=== PATIENT | male | born 1955 | race Caucasian/White ===

== ENCOUNTER 2016-03-12 06:53 | Emergency (ER) | payer OTHER ==
[2016-03-12 07:03] VITALS: TEMP 98.6
--- NOTE | 2016-03-12 07:25 | CPEKG ---
Heart Rate: 67 RR Interval: 896 P-R Interval: 144 QRSD Interval: 82 QT Interval: 392 QTC Interval: 414 P Knox: 45 QRS Knox: 16 T Wave Knox: 156 EKG Severity - ABNORMAL ECG - EKG Impression: SINUS RHYTHM EKG Impression: NONSPECIFIC T ABNORMALITIES, ANT-LAT LEADS EKG Impression: No previous for comparison Electronically Signed By: Corey White 12-Mar-2016 07:44:55
[2016-03-12] MEDS ORDERED: IPRATROPIUM/ALBUTEROL 3 ML DEYVIAL IH ONE (07:41)
--- NOTE | 2016-03-12 07:44 | EDPHY ---
H & P Stated Complaint: cough/not responsive to azithromycin Time Seen by Provider: 03/12/16 07:30 HPI/ROS: CHIEF COMPLAINT: Cough, shortness of breath with exertion HISTORY OF PRESENT ILLNESS: The patient is a 60-year-old man who comes to the emergency department complaining of a cough that is not improving. He has a history of severe seasonal allergies. He states that around this time every year he gets an infection that requires azithromycin. He saw his primary doctor Baldomero on Friday and was started on Z-Lowell. His symptoms however had not improved. He has had a low-grade fever at home. He also feels short of breath with exerting himself even walking more than a block or 2. He has not had any leg swelling. He denies chest pain. He has had sinus congestion and a significant cough that is nonproductive. No sore throat. No GI symptoms. No chest pain. REVIEW OF SYSTEMS: Constitutional: denies: chills, fever, recent illness, recent injury EENTM: denies: blurred vision, double vision, nose congestion Respiratory: See HPI Cardiac: denies: chest pain, irregular heart rate, lightheadedness, palpitations Gastrointestinal/Abdominal: denies: abdominal pain, diarrhea, nausea, vomiting, blood streaked stools Genitourinary: denies: dysuria, frequency, hematuria, pain Musculoskeletal: denies: joint pain, muscle pain Skin: denies: lesions, rash, jaundice, bruising Neurological: denies: headache, numbness, paresthesia, tingling, dizziness, weakness Hematologic/Lymphatic: denies: blood clots, easy bleeding, easy bruising Immunologic/allergic: denies: HIV/AIDS, transplant EXAM: GENERAL: Well-appearing, well-nourished and in no acute distress. HEAD: Atraumatic, normocephalic. EYES: Pupils equal round and reactive to light, extraocular movements intact, sclera anicteric, conjunctiva are normal. ENT: TMs normal, nares patent, oropharynx clear without exudates. Moist mucous membranes. NECK: Normal range of motion, supple without lymphadenopathy or JVD. LUNGS: Left middle lung field rhonchi HEART: Regular rate and rhythm without murmurs, rubs or gallops. ABDOMEN: Soft, nontender, normoactive bowel sounds. No guarding, no rebound. No masses appreciated. BACK: No CVA tenderness, no spinal tenderness, step-offs or deformities EXTREMITIES: Normal range of motion, no pitting or edema. No clubbing or cyanosis. NEUROLOGICAL: Cranial nerves II through XII grossly intact. Normal speech, normal gait. 5/5 strength, normal movement in all extremities, normal sensation PSYCH: Normal mood, normal affect. SKIN: Warm, dry, normal turgor, no visible rashes or lesions. Source: Patient Exam Limitations: No limitations - Personal History Current Tetanus/Diphtheria Vaccine: Yes - Medical/Surgical History Hx Asthma: No Hx Chronic Respiratory Disease: No Hx Diabetes: No Hx Cardiac Disease: No Hx Renal Disease: No Hx Cirrhosis: No Hx Alcoholism: No Hx HIV/AIDS: No Hx Splenectomy or Spleen Trauma: No Other PMH: hypertension, GERD, bowel resection, back surgery x2, neck fusion,. r shoulder surgery, several left ankle surgeries x6 with fusion - Family History Significant Family History: Hypertension - Social History Smoking Status: Former smoker Alcohol Use: Sober Drug Use: None Constitutional: Initial Vital Signs Temperature (C) 37 C 03/12/16 07:00 Heart Rate 75 03/12/16 07:00 Respiratory Rate 18 03/12/16 07:00 Blood Pressure 155/88 H 03/12/16 07:00 O2 Sat (%) 92 03/12/16 07:00 O2 Delivery Mode Room Air Allergies/Adverse Reactions: aspirin [From Percodan] Allergy (Verified 03/12/16 06:58) meperidine HCl [From Demerol] Allergy (Verified 03/12/16 06:58) oxycodone HCl [From Percodan] Allergy (Verified 03/12/16 06:58) oxycodone terephthalate [From Percodan] Allergy (Verified 03/12/16 06:58) Penicillins Allergy (Verified 03/12/16 06:58) Home Medications: Medication Instructions Recorded Ascorbic Acid [Vitamin C] 1,000 mg PO DAILY 06/27/15 Cholecalciferol Vit D3 [Vitamin D] 1,000 units PO DAILY 06/27/15 Cromolyn Sodium [Nasalcrom] 1 - 2 sprays EACHNARE DAILY 06/27/15 Fexofenadine HCl [Mildred Allergy] 180 mg PO DAILY 06/27/15 Lisinopril [Zestril] 10 mg PO DAILY 06/27/15 Pravastatin Sodium 20 mg PO DAILY 06/27/15 Psyllium Husk (with Sugar) 1 each PO DAILY 06/27/15 [Metamucil Packet] Albuterol [Proventil Inhaler] 1 - 2 puffs IH Q4H #1 mdi 03/12/16 levOFLOXACIN [levAQUIN] 750 mg PO DAILY #10 tab 03/12/16 Medical Decision Making - Diagnostics EKG Interpretation: An EKG obtained and was read and documented in trace view. Please see trace view for full reading and report. Sinus rhythm, nonspecific T-wave inversions anteriorly laterally, no previous for comparison Imaging: X-ray: chest x-ray was obtained. I viewed the images myself on the PACS system. My interpretation of the images is: Left lower lobe infiltrate. The radiologist interpretation is pending. ED Course/Re-evaluation: We discussed the x-ray results. They match the patient's symptoms. Will start him on Levaquin. He did have some improvement of symptoms with albuterol. He has albuterol at home that he can use. I will also refill his prescription. We discussed side effects of Levaquin. We discussed indications for returning. Additional verbal discharge instructions given. Differential Diagnosis: Partial list of the Differential diagnosis considered include but were not limited to; bronchitis, pneumonia, reactive airway disease and although unlikely based on the history and physical exam, I also considered PE, dissection, acute coronary disease. I discussed these differential diagnoses and the plan with the patient as well as the usual and expected course. The patient understands that the diagnosis is provisional and that in medicine we are not always correct and that further workup is often warranted. Usual and customary warnings were given. All of the patient's questions were answered. The patient was instructed to return to the emergency department should the symptoms at all worsen or return, otherwise to followup with the physician as we discussed. - Data Points Laboratory Results: 03/12/16 07:40 Influenza Typ A,B (DFA) NEGATIVE FOR FLU (NEGATIVE) Medications Given: Discontinued Medications Albuterol/Ipratropium (Duoneb) 3 ml IH EDNOW ONE Stop: 03/12/16 07:42 Last Admin: 03/12/16 07:48 Dose: 3 ml Levofloxacin (Levaquin) 750 mg PO EDNOW ONE PRN Reason: Protocol Stop: 03/12/16 09:01 Last Admin: 03/12/16 09:14 Dose: 750 mg Departure - Departure Disposition: Home, Routine, Self-Care Clinical Impression: Pneumonia Qualifiers: Pneumonia type: due to unspecified organism Laterality: left Lung location: lower lobe of lung Qualifier Code: (J18.1) Lobar pneumonia, unspecified organism Condition: Fair Instructions: Pneumonia (ED), Levofloxacin (By mouth) Referrals: Crystal Caputo MD [Primary Care Provider] - As per Instructions Prescriptions: Albuterol [Proventil Inhaler] 1 - 2 puffs IH Q4H #1 mdi levOFLOXACIN [levAQUIN] 750 mg PO DAILY #10 tab
[2016-03-12 09:16] VITALS: BP 138/83; PULSE 73; RESP 16; O2SAT 94
--- NOTE | 2016-03-12 10:55 | DX ---
Chest, Two Views at 0809 hours History: Dyspnea. Comparison: None. Findings: Cardiac silhouette is within normal range. Bilateral peribronchial thickening. No pneumonia , congestive heart failure, pleural effusion, or pneumothorax. Cervical fusion plate and screws noted Impression: 1. Bronchitis. 2. No definite pneumonia.
== END 2016-03-12 09:15 | disposition home or self-care (01) ==
DX: J18.1 Lobar pneumonia, unspecified organism (principal); I10 Essential (primary) hypertension; Z87.891 Personal history of nicotine dependence

== ENCOUNTER 2016-05-15 20:36 | Inpatient (IN) | payer OTHER ==
--- NOTE | 2016-05-15 20:47 | EDPHY ---
H & P Stated Complaint: L facial swelling, pain, due for extractions 4/6 on clinda HPI/ROS: HPI CHIEF COMPLAINT: Possible dental infection. HISTORY OF PRESENT ILLNESS: This patient very pleasant 60-year-old male, significant past medical history for hypertension, prediabetes, and poor dentition, multiple orthopedic surgeries, presents emergency room worsening left jaw line and facial swelling. He tells me this started early this morning. He was seen by his dentist today and started on clindamycin he has taken 1 dose of clindamycin prior to arrival to the emergency room. He was told by his dentist at the swelling went blow his jaw line needs to seek medical attention. He Nikolai as if his swelling of his left lower jaw line and face was getting more swollen. He has not had a fever. No trouble swallowing. No swelling underneath his tongue. The swelling and pain is located on the left lower jaw line. He has very poor dentition there. Tells me he is due to have dental extraction. Past Medical History: Hypertension, prediabetes, poor dentition, GERD, anxiety , multiple orthopedic surgeries Past Surgical History: Multiple orthopedic surgeries including back, cervical. Social History: Denies daily use drugs alcohol tobacco products Family History: Noncontributory ROS REVIEW OF SYSTEMS: A comprehensive 10 point review of systems is otherwise negative aside from elements mentioned in the history of present illness. Exam Constitutional triage nursing summary reviewed, vital signs reviewed, awake/ alert. Eyes normal conjunctivae and sclera, EOMI, PERRLA. HENT facial in oropharynx: patient has significant left jaw line swelling, is also swollen under the left submandibular region, on oral exam the uvula is midline there is no posterior pharynx inflammation or swelling, no sublingual swelling, no signs of Liam's, no lateral neck swelling. Patient has extremely poor dentition especially along the left lower jaw line. Multiple decayed over the teeth down to the gumline. normal inspection, atraumatic, moist mucus membranes, no epistaxis, neck supple/ no meningismus, no raccoon eyes. Respiratory clear to auscultation bilaterally, normal breath sounds, no respiratory distress, no wheezing. Cardiovascular rate normal, regular rhythm, no murmur, no edema, distal pulses normal. Gastrointestinal soft, non-tender, no rebound, no guarding, normal bowel sounds, no distension, no pulsatile mass. Genitourinary no CVA tenderness. Musculoskeletal no midline vertebral tenderness, full range of motion, no calf swelling, no tenderness of extremities, no meningismus, good pulses, neurovascularly intact. Skin pink, warm, & dry, no rash, skin atraumatic. Neurologic awake, alert and oriented x 3, AAOx3, moves all 4 extremities equally, motor intact, sensory intact, CN II-XII intact, normal cerebellar, normal vision, normal speech. Psychiatric normal mood/affect. Heme/Lymph/Immune no lymphadenopathy. Differential Diagnosis: Includes but is not limited to in a particular order, adult toy infection, facial abscess, facial cellulitis, bony abnormality, bony infection osteomyelitis Medical Decision Making: plan for this patient will have CT scan of his face with IV contrast to help delineate for abscess and daughter did not origin, blood work, inflammatory markers, he will be given IV clindamycin 900 mg, IV Decadron 10 mg, patient need to be admitted to the hospital for significant left facial swelling and infection. Question is is there an abscess or not. He appears well nontoxic. Re-evaluation: 2058: at this time this patient is maintaining his airway, no trouble swallowing, no trouble breathing. Noted left facial jaw line swelling. 2246: Re-evaluation at this time: Patient is resting comfortably no complaints. Specifically no trouble swallowing, no trouble breathing. Tells me there is no difference in pain or size since he has been here. He did receive 900 mg IV clindamycin, IV Decadron [address] scan results are pending at this time. CT scan of the face-vesta with IV contrast The results of the study are this shows significant swelling to the right face mandibular and submandibular region , no fluid collection or abscess that is discernible or drainable this is all odontoid in origin, there is multiple premolar molar dental decay and cavities The study was read by Dr. Dumont. I viewed the images myself on the PACS system. 2311: Patient understands he will be admitted to the hospital for IV antibiotics for his facial cellulitis most likely odontoid in origin I have ordered him 900 mg IV clindamycin. Blood cultures have been sent. Blood work has been reviewed. At this time I did re-evaluate he has no airway involvement no trouble swallowing. No signs of Liam's. He is nontoxic appearing. Blood work has been reviewed elevated CRP, elevated white blood cell count however patient is not hypotensive or febrile. I spoke with Dr. Ponce agrees to admit this patient for facial cellulitis. 2325: Spoke with Dr. Ponce Agrees to admit. Patient hemodynamically stable will be admitted Medical surge. Source: Patient - Personal History Current Tetanus/Diphtheria Vaccine: Unsure Current Tetanus Diphtheria and Acellular Pertussis (TDAP): Unsure - Medical/Surgical History Hx Asthma: No Hx Chronic Respiratory Disease: No Hx Diabetes: No Hx Cardiac Disease: No Hx Renal Disease: No Hx Cirrhosis: No Hx Alcoholism: No Hx HIV/AIDS: No Hx Splenectomy or Spleen Trauma: No Other PMH: hypertension, GERD, bowel resection, back surgery x2, neck fusion,. r shoulder surgery, several left ankle surgeries x6 with fusion - Social History Smoking Status: Former smoker Constitutional: Initial Vital Signs Temperature (C) 37.2 C 05/15/16 20:41 Heart Rate 82 05/15/16 20:41 Respiratory Rate 18 05/15/16 20:41 Blood Pressure 173/94 H 05/15/16 20:41 O2 Sat (%) 92 05/15/16 20:41 O2 Delivery Mode Room Air Allergies/Adverse Reactions: aspirin [From Percodan] Allergy (Verified 05/15/16 21:35) Other-Enter Comments meperidine HCl [From Demerol] Allergy (Verified 05/15/16 21:35) Vomiting oxycodone HCl [From Percodan] Allergy (Verified 05/15/16 21:35) Other-Enter Comments oxycodone terephthalate [From Percodan] Allergy (Verified 05/15/16 21:35) Other-Enter Comments Penicillins Allergy (Verified 05/15/16 21:35) Unknown Home Medications: Medication Instructions Recorded Ascorbic Acid [Vitamin C] 1,000 mg PO DAILY 06/27/15 Cholecalciferol Vit D3 [Vitamin D] 1,000 units PO DAILY 06/27/15 Cromolyn Sodium [Nasalcrom] 1 - 2 sprays EACHNARE DAILY 06/27/15 Fexofenadine HCl [Mildred Allergy] 180 mg PO DAILY 06/27/15 Pravastatin Sodium 20 mg PO DAILY 06/27/15 Psyllium Husk (with Sugar) 1 each PO DAILY 06/27/15 [Metamucil Packet] Albuterol [Proventil Inhaler] 1 - 2 puffs IH Q4H #1 mdi 03/12/16 Clindamycin 150 mg PO Q6H 05/15/16 Lisinopril [Zestril 30 mg] 30 mg PO BID 05/15/16 Naproxen Sodium [Aleve 220 MG (*)] 440 mg PO BID PRN 05/15/16 Sildenafil Citrate [Viagra] 100 mg PO DAILY PRN 05/15/16 Medical Decision Making - Data Points Laboratory Results: Laboratory Results 05/15/16 21:00 05/15/16 21:00 05/15/16 05/15/16 21:00 21:00 WBC 10.56 10^3/uL H 10^3/uL (3.80-9.50) RBC 4.99 10^6/uL 10^6/uL (4.40-6.38) Hgb 13.3 g/dL L g/dL (13.7-17.5) Hct 41.7 % % (40.0-51.0) MCV 83.6 fL fL (81.5-99.8) MCH 26.7 pg L pg (27.9-34.1) MCHC 31.9 g/dL L g/dL (32.4-36.7) RDW 16.9 % H % (11.5-15.2) Plt Count 252 10^3/uL 10^3/uL (150-400) MPV 10.7 fL fL (8.7-11.7) Neut % (Auto) 78.7 % H % (39.3-74.2) Lymph % (Auto) 11.2 % L % (15.0-45.0) Gilchrist % (Auto) 8.1 % % (4.5-13.0) Eos % (Auto) 1.0 % % (0.6-7.6) Baso % (Auto) 0.5 % % (0.3-1.7) Nucleat RBC Rel Count 0.0 % % (0.0-0.2) Absolute Neuts (auto) 8.31 10^3/uL H 10^3/uL (1.70-6.50) Absolute Lymphs (auto) 1.18 10^3/uL 10^3/uL (1.00-3.00) Absolute Monos (auto) 0.86 10^3/uL H 10^3/uL (0.30-0.80) Absolute Eos (auto) 0.11 10^3/uL 10^3/uL (0.03-0.40) Absolute Basos (auto) 0.05 10^3/uL 10^3/uL (0.02-0.10) Absolute Nucleated RBC 0.00 10^3/uL 10^3/uL (0-0.01) Immature Gran % 0.5 % % (0.0-1.1) Immature Gran # 0.05 10^3/uL 10^3/uL (0.00-0.10) ESR 14 MM/HR MM/HR (0-20) Sodium 141 mEq/L mEq/L (134-144) Potassium 3.7 mEq/L mEq/L (3.5-5.2) Chloride 104 mEq/L mEq/L (97-110) Carbon Dioxide 27 mEq/l mEq/l (22-31) Anion Gap 10 mEq/L mEq/L (8-16) BUN 12 mg/dL mg/dL (7-23) Creatinine 0.7 mg/dL mg/dL (0.7-1.3) Estimated GFR > 60 Glucose 155 mg/dL H mg/dL (70-100) Calcium 9.3 mg/dL mg/dL (8.5-10.4) C-Reactive Protein 29.4 mg/L H mg/L (<10.0) Medications Given: Discontinued Medications Dexamethasone (Decadron Injection) 10 mg IVP EDNOW ONE Stop: 05/15/16 20:54 Last Admin: 05/15/16 21:20 Dose: 10 mg Clindamycin Phosphate/Dextrose (Cleocin 900 Mg (Premix)) 50 mls @ 100 mls/hr IV ONCE ONE PRN Reason: Protocol Stop: 05/15/16 21:22 Last Admin: 05/15/16 21:26 Dose: 50 mls Sodium Chloride (Ns) 1,000 mls @ 0 mls/hr IV ONCE ONE PRN Reason: Wide Open Stop: 05/15/16 20:54 Last Admin: 05/15/16 21:15 Dose: 1,000 mls Lorazepam (Ativan Injection) 1 mg IVP EDNOW ONE Stop: 05/15/16 20:54 Last Admin: 05/15/16 21:58 Dose: 1 mg Departure - Departure Disposition: [facility] Inpatient Acute Clinical Impression: Facial cellulitis Condition: Fair Referrals: Crystal Caputo MD [Primary Care Provider] - As per Instructions
[2016-05-15] MEDS ORDERED: LORazepam 2 MG/ML INJ IVP ONE (20:53)
[2016-05-15] MEDS ORDERED: CLINDAMYCIN 900 MG/DEXTROSE 50 ML IV ONE (20:53)
[2016-05-15] MEDS ORDERED: DEXAMETHASONE 10 MG/ML VIAL IVP ONE (20:53)
[2016-05-15] MEDS ORDERED: NS 1,000 ML IV ONE (20:53)
[2016-05-15 21:15] LABS: % IMMATURE GRANULYOCYTES 0.5 % (0.0-1.1); ABSOLUTE IMMATURE GRANULOCYTES 0.05 10^3/uL (0.00-0.10); ADD DIFF? NO; ADD MORPH? NO; ADD SCAN? NO; ATYPICAL LYMPHOCYTE FLAG 0 (0-99); FRAGMENT RBC FLAG 0 (0-99); HEMATOCRIT 41.7 % (40.0-51.0); HEMOGLOBIN 13.3 g/dL (13.7-17.5); LEFT SHIFT FLG 0 (0-99); LIPEMIA HEMOLYSIS FLAG 80 (0-99); MEAN CELL HEMOGLOBIN 26.7 pg (27.9-34.1); MEAN CELL HEMOGLOBIN CONCENTR. 31.9 g/dL (32.4-36.7); MEAN CELL VOLUME 83.6 fL (81.5-99.8); MEAN PLATELET VOLUME 10.7 fL (8.7-11.7); PLATELET CLUMPS FLAG 20 (0-99); PLATELET COUNT 252 10^3/uL (150-400); RED BLOOD CELL COUNT 4.99 10^6/uL (4.40-6.38); RED CELL DISTRIBUTION WIDTH 16.9 % (11.5-15.2)
[2016-05-15] MEDS ORDERED: IOPAMIDOL (ISOVUE-300) 100 ML BTL IV ONE (21:30)
[2016-05-15 21:34] LABS: POTASSIUM 3.7 mEq/L (3.5-5.2)
[2016-05-15 21:37] LABS: ANION GAP 10 mEq/L (8-16); C-REACTIVE PROTEIN 29.4 mg/L (<10.0); CALCIUM 9.3 mg/dL (8.5-10.4); CARBON DIOXIDE 27 mEq/l (22-31); CHLORIDE 104 mEq/L (97-110); CREATININE 0.7 mg/dL (0.7-1.3); GLOMERULAR FILTRATION RATE > 60; GLUCOSE 155 mg/dL (70-100); SODIUM 141 mEq/L (134-144)
[2016-05-15 22:02] LABS: SEDIMENTATION RATE 14 MM/HR (0-20)
[2016-05-15] MEDS ORDERED: fentaNYL 100 MCG/2 ML INJ IVP ONE (22:50)
[2016-05-15] MEDS ORDERED: ONDANSETRON 4 MG/2 ML VIAL IVP ONE (22:50)
[2016-05-15] MEDS ORDERED: ONDANSETRON 4 MG/2 ML VIAL ONE (23:20)
[2016-05-16] MEDS ORDERED: ONDANSETRON DISINTEGRATING 4 MG TAB PO PRN (02:10)
[2016-05-16] MEDS ORDERED: ACETAMINOPHEN 325 MG TAB PO PRN (02:10)
[2016-05-16] MEDS ORDERED: ONDANSETRON 4 MG/2 ML VIAL IVP PRN (02:10)
[2016-05-16] MEDS ORDERED: NAPROXEN SODIUM 220 MG TAB PO PRN (02:12)
[2016-05-16] MEDS ORDERED: Sildenafil Citrate [Viagra] 100 MG PO PRN (02:12)
[2016-05-16] MEDS ORDERED: NS W/ 20 KCl/L 1,000 ML IV SCH (02:15)
--- NOTE | 2016-05-16 02:22 | PDGENHP ---
History and Physical - Chief Complaint Acute face pain - History of Present Illness PCP: Dr. Caputo Primary dentist: Dr. Viera HPI: 60-year-old male presenting with acute face pain located along the left mandible, extending medially with associated soft tissue swelling and visible erythema. Patient reports the onset of symptoms on the morning of presentation and duration has been persistently worsening thereafter. Did experience similar symptoms approximately 2 weeks ago but they were of lesser severity and they were alleviated by 8 days of oral clindamycin. The patient has been off of clindamycin for approximately 1 week. He reports that the pain is somewhat alleviated by naproxen. Has scheduled to have his left mandibular molars removed by Dr. Viera on May 30. He presented to [facility] on the day of this presentation and received 1 dose of 600 mg oral clindamycin but then became concerned when his symptoms did not gladys. History Information - Allergies/Home Medication List Allergies/Adverse Reactions: aspirin [From Percodan] Allergy (Verified 05/15/16 21:35) Other-Enter Comments meperidine HCl [From Demerol] Allergy (Verified 05/15/16 21:35) Vomiting oxycodone HCl [From Percodan] Allergy (Verified 05/15/16 21:35) Other-Enter Comments oxycodone terephthalate [From Percodan] Allergy (Verified 05/15/16 21:35) Other-Enter Comments Penicillins Allergy (Verified 05/15/16 21:35) Unknown Home Medications: Ascorbic Acid [Vitamin C] 1,000 mg PO DAILY 06/27/15 [Last Taken 05/15/16] Cholecalciferol Vit D3 [Vitamin D] 1,000 units PO DAILY 06/27/15 [Last Taken ] Cromolyn Sodium [Nasalcrom] 1 - 2 sprays EACHNARE DAILY 06/27/15 [Last Taken ] Fexofenadine HCl [Mildred Allergy] 180 mg PO DAILY 06/27/15 [Last Taken 05/15/16 ] Pravastatin Sodium 20 mg PO DAILY 06/27/15 [Last Taken 05/15/16] Psyllium Husk (with Sugar) [Metamucil Packet] 1 each PO DAILY 06/27/15 [Last Taken 05/15/16] Clindamycin 150 mg PO Q6H 05/15/16 [Last Taken 05/15/16 19:00 600 MG] Lisinopril [Zestril 30 mg] 30 mg PO BID 05/15/16 [Last Taken 05/15/16 BOTH DOSES ] Naproxen Sodium [Aleve 220 MG (*)] 440 mg PO BID PRN 05/15/16 [Last Taken ] Sildenafil Citrate [Viagra] 100 mg PO DAILY PRN 05/15/16 [Last Taken Unknown] I have personally reviewed and updated: family history, medical history, social history, surgical history - Past Medical History diabetes type 2 ( Hemoglobin A1c 6.6%), hypertension Additional medical history: Anxiety. Fibromyalgia. Dental decay - Surgical History Additional surgical history: Right shoulder. Bowel surgery. Back and cervical spine. Ankle surgery. Maxillary and right mandibular tooth extraction - Family History Additional family history: dental decay is prevalent in all of his family members - Social History Smoking Status: Former smoker Alcohol Use: Sober (quit 1981) Drug Use: None Additional social history: independent in ADLs Review of Systems ROS: 10pt was reviewed & negative except for what was stated in HPI & below EENMT: Reports: mouth swelling, other ( left mandibular molar pain) Skin: Reports: other ( erythema over left face) Physical Exam Temp Pulse Resp BP Pulse Ox 37.0 C 67 16 148/74 H 95 05/15/16 23:35 05/16/16 01:30 05/16/16 01:30 05/16/16 01:30 05/16/16 01:30 O2 (L/minute) 2 Constitutional: no apparent distress, appears nourished, not in pain, obese Eyes: PERRL, anicteric sclera, EOMI Ears, Nose, Mouth, Throat: other ( left lip swelling, left mandibular molar erosions, no particular soft tissue erythema in the left mouth and no open sores ) Cardiovascular: regular rate and rhythym, no murmur, rub, or gallop, edema ( trace bilateral lower extremity) Respiratory: no respiratory distress, no rales or rhonchi, clear to auscultation Gastrointestinal: normoactive bowel sounds, soft, non-tender abdomen, no palpable masses, other ( abdominal ventral hernia) Skin: other ( mild erythema along left mandible with soft tissue erythema under his chin, mild tenderness) Neurologic: AAOx3, No facial droop Psychiatric: interacting appropriately, not anxious, not encephalopathic, thought process linear Lymph, Heme, Immunologic: other ( anterior palpable cervical lymph nodes without any tenderness, submandibular lymphadenopathy left greater than right) Lab Data & Imaging Review 05/15/16 21:00 05/15/16 21:00 WBC 10.56 10^3/uL (3.80-9.50) H 05/15/16 21:00 RBC 4.99 10^6/uL (4.40-6.38) 05/15/16 21:00 Hgb 13.3 g/dL (13.7-17.5) L 05/15/16 21:00 Hct 41.7 % (40.0-51.0) 05/15/16 21:00 MCV 83.6 fL (81.5-99.8) 05/15/16 21:00 MCH 26.7 pg (27.9-34.1) L 05/15/16 21:00 MCHC 31.9 g/dL (32.4-36.7) L 05/15/16 21:00 RDW 16.9 % (11.5-15.2) H 05/15/16 21:00 Plt Count 252 10^3/uL (150-400) 05/15/16 21:00 MPV 10.7 fL (8.7-11.7) 05/15/16 21:00 Neut % (Auto) 78.7 % (39.3-74.2) H 05/15/16 21:00 Lymph % (Auto) 11.2 % (15.0-45.0) L 05/15/16 21:00 [place] % (Auto) 8.1 % (4.5-13.0) 05/15/16 21:00 Eos % (Auto) 1.0 % (0.6-7.6) 05/15/16 21:00 Baso % (Auto) 0.5 % (0.3-1.7) 05/15/16 21:00 Nucleat RBC Rel Count 0.0 % (0.0-0.2) 05/15/16 21:00 Absolute Neuts (auto) 8.31 10^3/uL (1.70-6.50) H 05/15/16 21:00 Absolute Lymphs (auto) 1.18 10^3/uL (1.00-3.00) 05/15/16 21:00 Absolute Monos (auto) 0.86 10^3/uL (0.30-0.80) H 05/15/16 21:00 Absolute Eos (auto) 0.11 10^3/uL (0.03-0.40) 05/15/16 21:00 Absolute Basos (auto) 0.05 10^3/uL (0.02-0.10) 05/15/16 21:00 Absolute Nucleated RBC 0.00 10^3/uL (0-0.01) 05/15/16 21:00 Immature Gran % 0.5 % (0.0-1.1) 05/15/16 21:00 Immature Gran # 0.05 10^3/uL (0.00-0.10) 05/15/16 21:00 ESR 14 MM/HR (0-20) 05/15/16 21:00 Sodium 141 mEq/L (134-144) 05/15/16 21:00 Potassium 3.7 mEq/L (3.5-5.2) 05/15/16 21:00 Chloride 104 mEq/L (97-110) 05/15/16 21:00 Carbon Dioxide 27 mEq/l (22-31) 05/15/16 21:00 Anion Gap 10 mEq/L (8-16) 05/15/16 21:00 BUN 12 mg/dL (7-23) 05/15/16 21:00 Creatinine 0.7 mg/dL (0.7-1.3) 05/15/16 21:00 Estimated GFR > 60 05/15/16 21:00 Glucose 155 mg/dL (70-100) H 05/15/16 21:00 Calcium 9.3 mg/dL (8.5-10.4) 05/15/16 21:00 C-Reactive Protein 29.4 mg/L (<10.0) H 05/15/16 21:00 Assessment & Plan Assessment: 60-year-old male presenting with facial cellulitis in the setting of left mandibular molar dental caries Plan: 1. Cellulitis. Patient's face CT demonstrates a dental cellulitis without any focal abscess, secondary to mandibular molar caries - has responded favorably to clindamycin in the past and then recurred when he was off of antibiotics - discussed with Dr. Bravo, he has reported that the patient received 900 mg of IV clindamycin in the emergency department, will continue with 600 mg IV Q 8 - if area significantly improved in a.m., recommend adjusting to oral clindamycin 300-450 mg q.6-8 hours for the next couple weeks until the patient is able to undergo dental extraction - patient is currently able to swallow, breathe, eat safely - no further inpatient OMFS evaluation is indicated as the patient has good outpatient dental follow-up 2. Hypertension. Continue patient's home medications Diet. Regular Prophylaxis. Moderate risk patient, Lovenox 40 Code status. Full Disposition. Anticipated discharge 05/16/2016, pending clinical improvement as outlined above.
[2016-05-16] MEDS: ALBUTEROL 60 PUFFS/8 GM MDI IH SCH ×4 (05:19→15:38)
[2016-05-16 06:07] LABS: % IMMATURE GRANULYOCYTES 0.7 % (0.0-1.1); ABSOLUTE IMMATURE GRANULOCYTES 0.08 10^3/uL (0.00-0.10); ADD DIFF? NO; ADD MORPH? NO; ADD SCAN? NO; ATYPICAL LYMPHOCYTE FLAG 0 (0-99); FRAGMENT RBC FLAG 0 (0-99); HEMATOCRIT 39.2 % (40.0-51.0); HEMOGLOBIN 12.5 g/dL (13.7-17.5); LEFT SHIFT FLG 0 (0-99); LIPEMIA HEMOLYSIS FLAG 80 (0-99); MEAN CELL HEMOGLOBIN 26.6 pg (27.9-34.1); MEAN CELL HEMOGLOBIN CONCENTR. 31.9 g/dL (32.4-36.7); MEAN CELL VOLUME 83.4 fL (81.5-99.8); MEAN PLATELET VOLUME 11.2 fL (8.7-11.7); PLATELET CLUMPS FLAG 0 (0-99); PLATELET COUNT 246 10^3/uL (150-400); RED CELL DISTRIBUTION WIDTH 16.8 % (11.5-15.2)
[2016-05-16] MEDS: CLINDAMYCIN 600 MG/DEXTROSE 50 ML IV SCH ×3 (06:09→21:42)
[2016-05-16 06:29] LABS: ANION GAP 14 mEq/L (8-16); CALCIUM 9.1 mg/dL (8.5-10.4); CARBON DIOXIDE 21 mEq/l (22-31); CHLORIDE 105 mEq/L (97-110); CREATININE 0.6 mg/dL (0.7-1.3); GLOMERULAR FILTRATION RATE > 60; GLUCOSE 233 mg/dL (70-100); POTASSIUM 4.4 mEq/L (3.5-5.2); SODIUM 140 mEq/L (134-144)
[2016-05-16] MEDS: LISINOPRIL 10 MG TAB PO SCH ×2 (09:48→21:42)
[2016-05-16] MEDS: ASCORBIC ACID 500 MG TAB PO SCH (09:48)
[2016-05-16] MEDS: CETIRIZINE 10 MG TAB PO SCH (09:48)
[2016-05-16] MEDS: CHOLECALCIFEROL VIT D3 1,000 UNITS TAB PO SCH (09:49)
[2016-05-16] MEDS: PRAVASTATIN SODIUM 20 MG TAB PO SCH (09:49)
[2016-05-16] MEDS: Cromolyn Sodium [Nasalcrom] EACHNARE SCH (09:49)
[2016-05-16] MEDS: ENOXAPARIN 40 MG/0.4 ML SYR SC SCH (09:50)
[2016-05-16] MEDS: PSYLLIUM METAMUCIL 1 PKT PO SCH (09:51)
--- NOTE | 2016-05-16 15:11 | HOSPPROG ---
Hospitalist Progress Note Assessment/Plan: 60-year-old male presenting with facial cellulitis in the setting of left mandibular molar dental caries. This is my first encounter with this pt. Chart reviewed. Plan: 1. Cellulitis. Patient's face CT demonstrates a dental cellulitis without any focal abscess, secondary to mandibular molar caries - has responded favorably to clindamycin in the past and then recurred when he was off of antibiotics - continue with 600 mg IV Q 8 - if area significantly improved in a.m., adjusting to oral clindamycin 300-450 mg q.6-8 hours for the next couple weeks until the patient is able to undergo dental extraction - patient is currently able to swallow, breathe, eat safely - no further inpatient OMFS evaluation is indicated as the patient has good outpatient dental follow-up 2. Hypertension. Continue patient's home medications Diet. Regular Prophylaxis. Moderate risk patient, Lovenox 40 Code status. Full Disposition. Change to inpatient. Needs further IV abx therapy and monitoring. Subjective: Feels better. Still has some pain. No other issues. Objective: Vital Signs Temp Pulse Resp BP Pulse Ox 36.8 C 99 18 175/93 H 93 05/16/16 11:28 05/16/16 11:28 05/16/16 11:28 05/16/16 11:28 05/16/16 11:28 Laboratory Results 05/16/16 04:50 05/16/16 04:50 05/15/16 05/16/16 05/17/16 05:59 05:59 05:59 Intake Total 1450 Output Total 500 Balance 950 - Physical Exam Constitutional: appears nourished, obese, uncomfortable Eyes: PERRL, anicteric sclera, EOMI Ears, Nose, Mouth, Throat: hearing normal, ears appear normal, other (cellulitis , swelling) Cardiovascular: regular rate and rhythym, No JVD, No edema Respiratory: no respiratory distress, no rales or rhonchi, clear to auscultation Gastrointestinal: No tenderness, No ascites, No guarding Skin: warm, normal color, erythema Musculoskeletal: full muscle strength, normal joint ROM, no joint effusions Neurologic: AAOx3 Psychiatric: interacting appropriately, not anxious, not encephalopathic ICD10 Worksheet Patient Problems: Problems Problem Status Onset Facial cellulitis Acute
[2016-05-16] MEDS ORDERED: ALBUTEROL 60 PUFFS/8 GM MDI IH PRN (15:29)
[2016-05-17] MEDS: CLINDAMYCIN 600 MG/DEXTROSE 50 ML IV SCH (05:24)
[2016-05-17 07:45] VITALS: BP 149/75; PULSE 73; RESP 16; TEMP 97.5; O2SAT 92
[2016-05-17] MEDS: LISINOPRIL 10 MG TAB PO SCH (10:23)
[2016-05-17] MEDS: CETIRIZINE 10 MG TAB PO SCH (10:23)
[2016-05-17] MEDS: PSYLLIUM METAMUCIL 1 PKT PO SCH (10:24)
[2016-05-17] MEDS: CHOLECALCIFEROL VIT D3 1,000 UNITS TAB PO SCH (10:24)
[2016-05-17] MEDS: ASCORBIC ACID 500 MG TAB PO SCH (10:24)
[2016-05-17] MEDS: PRAVASTATIN SODIUM 20 MG TAB PO SCH (10:24)
[2016-05-17] MEDS: ENOXAPARIN 40 MG/0.4 ML SYR SC SCH (10:26)
[2016-05-17] MEDS: Cromolyn Sodium [Nasalcrom] EACHNARE SCH (10:26)
--- NOTE | 2016-05-17 11:52 | GDS ---
[f rep st] DISCHARGE SUMMARY DISCHARGE DIAGNOSES: Facial cellulitis with mandibular molar caries without focal abscess. STUDIES AND PROCEDURES DONE: CT of the face. PHYSICAL EXAM: GENERAL: The patient is alert. VITAL SIGNS: Afebrile at 36.4, pulse is 73, respir atory rate 16, blood pressure is 149/75, he is saturating 92% on room air. I have seen and evaluate d the patient on the day of discharge. HOSPITAL COURSE: The patient is a 60-year-old male who presented to the hospital with complaints of facial pain and swelling. He was evaluated and diagnosed with facial cellulitis with mandibular mo lar caries without focal abscess. During this hospitalization, he was treated with IV clindamycin. His condition is moderately improved; however, it has been identified that the patient needs to hav e his teeth removed for this infection to resolve. I have discussed the patient's care with Dr. Anuel Lo who is willing to see the patient this afternoon in consultation in his office. Mr. Nakul campbell will be discharged independently to follow up with Dr. Lo today at 2 p.m. with the plan to h ave his teeth extracted. The patient is in agreement with this plan. He will follow up again in e outpatient setting. He also suffers from hypertension. He has been instructed to follow up with his primary care physician, Dr. Crystal Caputo to further evaluate his medication needs given his hy pertension. I have not treated it during this hospitalization as he is under distress and discomfor t secondary to his acute infectious process. There are no pending studies. DISCHARGE MEDICATIONS: Please refer to EMR form. I have not provided the patient with any prescrip tions at the time of disposition. He does already have a prescription for oral clindamycin but will defer to Dr. Lo for further antibiotic recommendations. I spent greater than 35 minutes in the care, coordination, and management of the patient's discharge . /[id number]/MODL
== END 2016-05-17 12:55 | disposition home or self-care (01) | DRG 603 ==
LOC: INTOOBSV 23:26 → F3E 05-16 02:40 → OBSVTOIN 05-16 12:21
PROVIDERS: ADMIT Internal Medicine; ATTEND Hospitalist
DX: L03.211 Cellulitis of face (principal); K02.9 Dental caries, unspecified; I10 Essential (primary) hypertension; R73.03 Prediabetes
CPT/HCPCS: 96365; J1650; J2060; J2405; J3010; Q9967

== ENCOUNTER → 2017-01-08 | Day surgery (SDC) | payer OTHER ==
[~2017-01-08] MED LIST: ACETAMINOPHEN 325 MG TAB PO ONE; DEXAMETHASONE 4 MG/ML VIAL IVP ONE; FAMOTIDINE 20 MG TAB PO ONE; LR 1,000 ML IV ONE; ROPIVACAINE 0.2% 80 MG, EPINEPHrine 0.2 MG in BAG 0 ML IU ONE; ROPIVACAINE 0.2% 80 MG, EPINEPHrine 0.2 MG, KETOROLAC TROMETHAMINE 30 MG in BAG 0 ML IU ONE; TRANEXAMIC ACID 3,000 MG in NS 50 ML IRR ONE; TRANEXAMIC ACID 3,000 MG/50 ML BAG IRR ONE; VANCOMYCIN 1 GM/NS 250 ML BAG IV ONE; VANCOMYCIN 1.75 GM in D5W 500 ML IV ONE
[2017-01-08 06:28] VITALS: BP 146/91; PULSE 72; RESP 17; TEMP 98.6
--- NOTE | 2017-01-08 07:26 | PDHPUP ---
History & Physical Update H&P update statement: This history and physical update is based on an assessment of the patient which was completed after admission or registration (within 24 hours), but prior to the surgery/procedure. H&P update: H&P reviewed & patient examined, no change in patient's condition since H&P completed
== END | disposition home or self-care (01) ==
LOC: F3N 05:44 → FSGY 05:44 → UNDOADMIN 05:44 → EDSTATUS 08:15
PROVIDERS: ATTEND Orthopaedic Surgery
DX: M16.11 Unilateral primary osteoarthritis, right hip (principal); Z53.09 Procedure and treatment not carried out because of other contraindication; L73.1 Pseudofolliculitis barbae
CPT/HCPCS: J0171; J1100; J1885; J2795; J3370

== ENCOUNTER 2017-02-07 10:36 | Inpatient (IN) | payer OTHER ==
[~2017-02-07 10:36] MED LIST changes: -ACETAMINOPHEN 325 MG TAB PO ONE; -DEXAMETHASONE 4 MG/ML VIAL IVP ONE; -FAMOTIDINE 20 MG TAB PO ONE; -LR 1,000 ML IV ONE; -ROPIVACAINE 0.2% 80 MG, EPINEPHrine 0.2 MG in BAG 0 ML IU ONE; -ROPIVACAINE 0.2% 80 MG, EPINEPHrine 0.2 MG, KETOROLAC TROMETHAMINE 30 MG in BAG 0 ML IU ONE; +ROPIVACAINE 0.2% 80 MG, EPINEPHrine 0.2 MG, KETOROLAC TROMETHAMINE 30 MG in SYRINGE 0 ML IU ONE; -VANCOMYCIN 1 GM/NS 250 ML BAG IV ONE; -VANCOMYCIN 1.75 GM in D5W 500 ML IV ONE
[2017-02-07] MEDS ORDERED: FAMOTIDINE 20 MG TAB PO ONE (12:44)
[2017-02-07] MEDS ORDERED: DEXAMETHASONE 4 MG/ML VIAL IVP ONE (12:44)
[2017-02-07] MEDS ORDERED: ACETAMINOPHEN 325 MG TAB PO ONE (12:44)
[2017-02-07] MEDS ORDERED: VANCOMYCIN PHARMACY TO DOSE MISC ONE (12:44)
[2017-02-07] MEDS ORDERED: LR 1,000 ML IV ONE (12:45)
--- NOTE | 2017-02-07 12:58 | PDANEPAE ---
ANE History of Present Illness 61 year old male w/ PMHx of HTN, obesity & OA presents for Right Hip Arthroplasty (anterior approach). ANE Past Medical History - Cardiovascular History Hx Hypertension: Yes Hx Arrhythmias: No Hx Chest Pain: No Hx Coronary Artery / Peripheral Vascular Disease: No Hx CHF / Valvular Disease: No Hx Palpitations: No Cardiovascular History Comment: hyperlipidemia, yulia filter - Pulmonary History Hx COPD: No Hx Asthma/Reactive Airway Disease: No Hx Recent Upper Respiratory Infection: No Hx Oxygen in Use at Home: No Hx Sleep Apnea: No Sleep Apnea Screening Result - Last Documented: Positive Pulmonary History Comment: drea triggers, no dx - Neurologic History Hx Cerebrovascular Accident: No Hx Seizures: No Hx Dementia: No - Endocrine History Hx Diabetes: No Obesity: yes Endocrine History Comment: "pre-diabetic" controlling with diet - Renal History Hx Renal Disorders: Yes Renal History Comment: bph - Liver History Hx Hepatic Disorders: No - Neurological & Psychiatric Hx Hx Neurological and Psychiatric Disorders: No - Cancer History Hx Cancer: Yes Cancer History Comment: melanoma removed - Congenital Disorder History Hx Congenital Disorders: No - GI History GERD: mild Hx Gastrointestinal Disorders: Yes Gastrointestinal History Comment: gerd,bowel resection 1994. IBS - Other Health History Other Health History: wears glasses. has upper denture - Chronic Pain History Chronic Pain: Yes (FIBROMYALGIA,LEFT FOOT,) - Surgical History Prior Surgeries: knee surgeries. 1994 left ankle fusion. back surgery. neck fusion 1999. spinal decompression 2010. hardware removed from left ankle ANE Review of Systems Review of Systems: - Exercise capacity Exercise capacity: >=4 METS METS (RN): 4 METS ANE Patient History - Allergies Allergies/Adverse Reactions: oxycodone [From Percocet] Allergy (Severe, Verified 01/15/17 10:25) Other-Enter Comments ceftriaxone [From Rocephin] Allergy (Mild, Verified 01/15/17 10:25) Vomiting latex Allergy (Verified 12/23/16 15:38) Rash meperidine HCl [From Demerol] Allergy (Verified 12/23/16 15:29) Vomiting oxycodone HCl [From Percodan] Allergy (Verified 12/23/16 15:29) Other-Enter Comments oxycodone terephthalate [From Percodan] Allergy (Verified 12/23/16 15:29) Other-Enter Comments Penicillins Allergy (Verified 12/23/16 15:29) Unknown - Home Medications Home medications: home medication list seen and reviewed Home Medications: RX: Ascorbic Acid [Vitamin C] 1,000 mg PO DAILY 06/27/15 [Last Taken 01/01/17] RX: Cholecalciferol Vit D3 [Vitamin D3 (*)] 1,000 units PO DAILY 06/27/15 [Last Taken 01/01/17] RX: Fexofenadine HCl [Mildred Allergy] 180 mg PO DAILY 06/27/15 [Last Taken 06:00] RX: Psyllium Husk (with Sugar) [Metamucil Packet] 1 each PO DAILY 06/27/15 [ Last Taken 01/07/17] RX: Lisinopril [Zestril 30 mg] 30 mg PO BID 05/15/16 [Last Taken 01/07/17 06:00] RX: Naproxen Sodium [Aleve 220 MG (*)] 440 mg PO BID PRN 05/15/16 [Last Taken ] RX: Sildenafil Citrate [Viagra] 100 mg PO DAILY PRN 05/15/16 [Last Taken 21:00] Atorvastatin Calcium [Lipitor 40 mg (*)] 40 mg PO HS 12/23/16 [Last Taken 21:00] amLODIPine BESYLATE [Norvasc 10 mg (*)] 10 mg PO HS 12/23/16 [Last Taken 21:00] - NPO status NPO Status: no food or drink >8 hours - Anes Hx Anes Hx: no prior problems - Smoking Hx Smoking Status: Former smoker - Alcohol Use Alcohol Use: Rarely - Family Anes Hx Family Anes Hx: neg - N/A Family Hx Anesthesia Complications: none ANE Labs/Vital Signs - Vital Signs Vital Signs: reviewed preoperatively; see RN documention for details Height: 182.88 cm Weight: 117.934 kg ANE Physical Exam - Airway Neck exam: FROM Mallampati Score: Class 3 Mouth exam: dentures, small mouth opening - Pulmonary Pulmonary: no respiratory distress - Cardiovascular Cardiovascular: regular rate and rhythym - ASA Status ASA Status: III ANE Anesthesia Plan Anesthesia Plan: general endotracheal anesthesia, MAC, spinal Total IV Anesthesia: No
[2017-02-07] MEDS ORDERED: LIDOCAINE 1% 2 ML INJ ID PRN (13:24)
[2017-02-07] MEDS ORDERED: VANCOMYCIN 1.5 GM in D5W 250 ML IV ONE (13:30)
[2017-02-07] MEDS ORDERED: MIDAZOLAM 2 MG/2 ML VIAL IVP ONE (14:00)
[2017-02-07] MEDS ORDERED: MIDAZOLAM 2 MG/2 ML VIAL ONE (14:04)
[2017-02-07] MEDS ORDERED: PROPOFOL/EMULSION 500 MG/50 ML BOTTLE IV ONE ×2 (14:05→14:50)
[2017-02-07] MEDS ORDERED: fentaNYL 100 MCG/2 ML INJ ONE ×2 (14:34→16:07)
[2017-02-07] MEDS ORDERED: diphenhydrAMINE 25 MG CAP PO PRN ×2 (14:41→14:43)
[2017-02-07] MEDS ORDERED: TEMAZEPAM 15 MG CAP PO PRN (14:41)
[2017-02-07] MEDS ORDERED: ONDANSETRON 4 MG/2 ML VIAL IVP PRN ×3 (14:41→15:17)
[2017-02-07] MEDS ORDERED: MAGNESIUM HYDROXIDE 30 ML UDCUP PO PRN (14:41)
[2017-02-07] MEDS ORDERED: PROMETHAZINE HCL 25 MG/ML INJ IVP PRN ×2 (14:41→14:43)
[2017-02-07] MEDS ORDERED: BISACODYL 10 MG SUPP PR PRN (14:41)
[2017-02-07] MEDS ORDERED: ONDANSETRON DISINTEGRATING 4 MG TAB PO PRN ×2 (14:41→14:43)
[2017-02-07] MEDS ORDERED: LACTULOSE 20 GM/30 ML UDCUP PO PRN ×2 (14:41→14:43)
[2017-02-07] MEDS ORDERED: PROMETHAZINE HCL 25 MG SUPPR PR PRN ×2 (14:41→14:43)
[2017-02-07] MEDS ORDERED: METOCLOPRAMIDE 10 MG/2 ML VIAL IVP PRN ×2 (14:41→14:43)
[2017-02-07] MEDS ORDERED: POLYETHYLENE GLYCOL 3350 17 GM PKT PO PRN ×2 (14:41→14:43)
[2017-02-07] MEDS ORDERED: oxyCODONE IR 5 MG TAB PO PRN (14:43)
[2017-02-07] MEDS ORDERED: DIPHENOXYLATE/ATROPINE LOMOTIL 1 TAB PO PRN (14:43)
[2017-02-07] MEDS ORDERED: LR 1,000 ML IV SCH ×2 (15:00)
[2017-02-07] MEDS ORDERED: LIDOCAINE 2% 5 ML SDV ONE (15:06)
[2017-02-07] MEDS ORDERED: ROCURONIUM 50 MG/5 ML VIAL ONE (15:06)
[2017-02-07] MEDS ORDERED: PHENYLEPHRINE HCL 100 MCG/ML SYR ONE (15:07)
[2017-02-07] MEDS ORDERED: SUCCINYLCHOLINE CHLORIDE*ANESTHESIA ONLY*200 MG/10 ML SYR IVP ONE (15:07)
[2017-02-07] MEDS ORDERED: DEXAMETHASONE 4 MG/ML VIAL ONE (15:09)
[2017-02-07] MEDS ORDERED: LABETALOL HCL 5 MG/ML 20 ML MDV IVP PRN (15:17)
[2017-02-07] MEDS ORDERED: LR 500 ML IV PRN (15:17)
[2017-02-07] MEDS ORDERED: NALOXONE HCL 0.4 MG/ML INJ IVP PRN ×2 (15:17→16:43)
[2017-02-07] MEDS ORDERED: WARFARIN SODIUM 5 MG TAB PO SCH (16:00)
--- NOTE | 2017-02-07 16:01 | POSTOPPROG ---
Post Op Note Date of Operation: 02/07/17 Surgeon: Subhash Garvin Supervisor [employer]ation: Eneida Garvin PAc Anesthesiologist: Evens Anesthesia: GET(General Endotracheal) Pre-op Diagnosis: R hip DJD Post-op Diagnosis: same Indication: pain Procedure: R LUCITA Findings: DJD hip Inf/Abcess present in the surg proc area at time of surgery?: No EBL: 100-500
[2017-02-07] MEDS: fentaNYL 100 MCG/2 ML INJ IVP PRN ×2 (16:12→16:20)
--- NOTE | 2017-02-07 16:20 | POSTANESTH ---
Post Anesthetic Evaluation Cardiovascular Status: Normal, Stable, Similar to Pre-Op Cond Respiratory Status: Normal, Stable, Similar to Pre-op Cond. Level of Consciousness/Mental Status: Can Participate in Eval, Alert and Oriented Pain Control: Adequate, Prn Tx Ordered Nausea/Vomiting Control: Adequate, Prn Tx Ordered Complications Possibly Related to Anesthesia: None Noted
[2017-02-07] MEDS ORDERED: HYDROmorphONE/DILAUDID 1 MG/ML INJ ONE (16:43)
[2017-02-07] MEDS: HYDROmorphONE/DILAUDID 1 MG/ML INJ IVP PRN ×3 (16:59→17:37)
[2017-02-07] MEDS ORDERED: HYDROCODONE/APAP 5/325 TAB ONE (17:27)
[2017-02-07] MEDS ORDERED: HYDROCODONE/APAP 5/325 TAB PO PRN (17:27)
[2017-02-07] MEDS: ACETAMINOPHEN 325 MG TAB PO SCH (20:58)
[2017-02-07] MEDS: FAMOTIDINE 20 MG TAB PO SCH (21:00)
[2017-02-07] MEDS: SENNOSIDES/DOCUSATE SODIUM TAB PO SCH (21:00)
[2017-02-07] MEDS ORDERED: ATORVASTATIN CALCIUM 40 MG TAB PO SCH (21:00)
[2017-02-07] MEDS: LISINOPRIL 20 MG TAB PO SCH (21:03)
[2017-02-08] MEDS: ACETAMINOPHEN 325 MG TAB PO SCH ×3 (00:41→10:40)
[2017-02-08] MEDS: WARFARIN SODIUM 5 MG TAB PO SCH ×2 (00:56→11:17)
[2017-02-08] MEDS ORDERED: VANCOMYCIN 1.5 GM in D5W 250 ML IV ONE (02:00)
[2017-02-08] MEDS: CYCLOBENZAPRINE 10 MG TAB PO PRN ×2 (02:22→10:40)
[2017-02-08 04:50] LABS: HEMATOCRIT 36.4 % (40.0-51.0); HEMOGLOBIN 12.1 g/dL (13.7-17.5)
[2017-02-08 04:58] LABS: INR 1.11 (0.83-1.16); PROTIME(PATIENT) 14.5 SEC (12.0-15.0)
[2017-02-08 05:07] LABS: ANION GAP 13 mEq/L (8-16); CALCIUM 8.7 mg/dL (8.5-10.4); CARBON DIOXIDE 24 mEq/l (22-31); CHLORIDE 103 mEq/L (97-110); CREATININE 0.9 mg/dL (0.7-1.3); GLOMERULAR FILTRATION RATE > 60; GLUCOSE 275 mg/dL (70-100); POTASSIUM 4.2 mEq/L (3.5-5.2); SODIUM 140 mEq/L (134-144)
--- NOTE | 2017-02-08 07:01 | GOP ---
[f rep st] OPERATIVE REPORT DATE OF OPERATION: 02/07/2017 SURGEON: Margret Garvin MD NEON PUMPER: ALBA Manzanares. PREOPERATIVE DIAGNOSIS: Right hip osteoarthritis. POSTOPERATIVE DIAGNOSIS: Right hip osteoarthritis. PROCEDURE PERFORMED: Total hip arthroplasty with x-ray. FINDINGS: INDICATIONS: The patient has progressively worsening arthritis of the hip which has failed medical management. The patient understands the treatment options including continued non-operative care and has selected surgical intervention. The patient has decided to undergo total hip arthroplasty via the direct anterior approach, understanding the risks of the procedure including , but not limited to, neurovascular injury, infection, persistent pain, component wear and loosening, deep venous thrombosis, pulmonary embolism, limb length inequality, hip instability (including dislocation), and intra-operative fractures. DESCRIPTION OF PROCEDURE: After proper identification of the patient including verification and marking the surgical site, the patient was brought to the operating room and placed in the supine position. All bony prominences were well padded. Anesthesia was induced without complication and intravenous prophylactic antibiotics were administered prior to skin incision. The operative leg was placed in the Trumpf Arch table extension and the well leg in a Yellofin leg alcantara. The patient was prepped and draped in the usual sterile fashion. The C-arm was draped for intra-operative fluoroscopy to check acetabular position, femoral component position including leg length and femoral offset. Attention was then drawn to surgical exposure of the hip. An incision was made with a #10 Bard Nura blade starting 3 cm lateral and 3 cm distal to the anterior superior iliac spine measuring 8-10 cm and coursing distally toward the greater trochanter. The skin and subcutaneous tissues were divided sharply down to the fascia juani. The fascia juani was incised in line with the skin incision exposing the underlying tensor fascia juani muscle. The muscle was bluntly elevated from the fascia and the first extracapsular Cobra retractor was placed laterally at the junction of the superior femoral neck and greater trochanter. The lateral femoral circumflex vessels were identified, cauterized , and divided with the Aquamantys bipolar cautery. The deep investing fascia of the TFL was divided to allow proper mobilization of the muscle preventing damage during the retraction. The reflected head of the rectus femoris muscle was elevated off the anterior hip capsule and a medial Cobra retractor was placed just proximal to the lesser trochanter. The anterior capsulotomy was made sharply from the superolateral acetabulum to the saddle junction of the superior femoral neck and greater trochanter, then coursing inferomedial towards the lesser trochanter. The retractors were then placed in the intracapsular position for femoral neck osteotomy. Corresponding to pre-operative templating, the osteotomy was made with the oscillating saw carefully protecting the greater trochanter and soft tissues. The femoral head was removed from the acetabulum with a corkscrew and confirmed to be severely arthritic with exposed bone, deformity and osteophytes. Similar findings were confirmed in the acetabulum. The Arch table extension was then placed in 40 degrees external rotation. Attention was then drawn to the acetabular preparation. After placement of the anterior and posterior Cobra retractors outside the labrum and intracapsular, the circumferential labrum was removed sharply. The foveal contents were then removed and hemostasis obtained with cautery. The first reamer selected was sized using the removed femoral head. Reaming began with medialization and then commenced in 2 mm increments at 45 degrees of abduction and 15 degrees of anteversion using fluoroscopic navigation. Reaming ceased 1 mm less than the definitive acetabular component and corresponded to the pre-operative templating. The final acetabular component was inserted using fluoroscopy to achieve proper orientation yielding excellent purchase and stability in the acetabulum. The final acetabular liner was then placed and its seating confirmed. Attention was then turned to the femur. The Arch table extension was placed in extension and adduction, delivering the osteotomized femoral neck into the wound. A 2-pronged femoral elevator was placed at the calcar and another at the tip of the greater trochanter. The posterolateral capsule was released with cautery allowing mobilization of the femur lateral and anterior for preparation. The external rotators were visualized and preserved. A curette and rongeur were used to open the starting point for broaching. Serial broaching started with the #0 broach and ended with the broach that exhibited excellent fit in the proximal femur. A change in pitch during mallet strikes was accompanied by the inability to advance the broach any further. The trial reduction was performed and fluoroscopic navigation was utilized to check limb length. Adjustments were made to equalize limb length accordingly. After the final trials were accepted they were removed and the wound was copiously lavaged. The femoral component was seated to the same depth as the final broach and the femoral head was impacted onto the clean trunnion. The hip was then reduced for the final time and once more fluoroscopy was used to check that limb length equality was achieved. The wound was irrigated and closed in layers, the fascia juani with 2-0 Quill, the subcutaneous tissue with 2-0 Quill, and the skin with Dermabond. Sterile dressings were applied. Final sharps and sponge counts were accurate. The patient was then transferred to a hospital bed and brought to the recovery room in stable condition. IMPLANTS: Accolade II size 5 at 127. Acetabular component a 56 mm Tritanium. The liner is a Trident X3, 36 mm. The head is a Biolox Delta 36 mm, -5. /[id number]/MODL MTDD
[2017-02-08 07:17] VITALS: BP 129/71; PULSE 88; RESP 17; TEMP 97.9; O2SAT 95
[2017-02-08] MEDS: SENNOSIDES/DOCUSATE SODIUM TAB PO SCH (08:57)
[2017-02-08] MEDS: FAMOTIDINE 20 MG TAB PO SCH (08:57)
[2017-02-08] MEDS ORDERED: ENOXAPARIN 40 MG/0.4 ML SYR SC SCH (09:00)
[2017-02-08] MEDS: LISINOPRIL 20 MG TAB PO SCH (09:08)
--- NOTE | 2017-02-08 09:10 | SOAPPROG ---
SOAP Progress Note Assessment/Plan: Assessment: Narinder is doing well today s/p R LUCITA 1) pain is well controlled on oral pain meds 2) VTE ppx: recommend coumadin and lovenox 3) d/c planning: d/c to home pending release from PT 4) anemia: level expected initially postop Plan: 02/08/17 09:08 Subjective: Narinder is doing well today, denies SOB, chest pain and n/v Objective: Vital Signs Temp Pulse Resp BP Pulse Ox 36.6 C 88 17 129/71 H 95 02/08/17 07:15 02/08/17 07:15 02/08/17 07:15 02/08/17 07:15 02/08/17 07:15 Laboratory Results 02/08/17 04:35 02/08/17 04:35 02/07/17 02/08/17 02/09/17 05:59 05:59 05:59 Intake Total 2200 Output Total 1200 500 Balance 1000 -500 PT 14.5 SEC (12.0-15.0) 02/08/17 04:35 INR 1.11 (0.83-1.16) 02/08/17 04:35 RLE: incision dressing is clean and dry, NVI< +pf/df ICD10 Worksheet Patient Problems: Problems Problem Status Onset Primary localized osteoarthritis of right hip Acute Facial cellulitis Acute
--- NOTE | 2017-02-08 09:46 | ASDISCHSUM ---
Discharge Information Plan Status:Home with No Needs Medically Cleared to Leave:02/07/2017 Discharge Date:02/07/2017 CM D/C Disposition:Home, Routine, Self-Care ADT D/C Disposition:Home, Routine, Self-Care Projected Discharge Date:02/07/2017 Transportation at D/C:Family Discharge Delay Reason: Follow-Up Date:02/07/2017 Discharge Slot: Final Diagnosis: Placement Information Patient Contact Information Contact Name:EFRAIN Relationship: Address:[address] Home Phone: City:[place] Alternate Phone: [facility]/Zip Code:[place] [address] Email: Financial Information Financial Class:Doretha Rosales Primary Plan Desc:DORETHA FAUSTIN HMO OPEN ACC LOCAL Primary Plan Number:[id number] Secondary Plan Desc: Secondary Plan Number: Assessment Information Case Management Discharge Plan Note Case Management Discharge Discharge Order Complete? Answers: Yes Patient to Obtain Answers: via Family Medications Transportation Arranged Answers: Family/Friends Discharge Comments Notes: Pt s/p R LUCITA. PT cleared. Pt will discharge home today with his . No CM needs identified. Date Signed: 02/08/2017 09:45 AM Electronically Signed By:POONAM Santizo Intervention Information
== END 2017-02-08 11:38 | disposition home or self-care (01) | DRG 470 ==
LOC: F3N 12:13
PROVIDERS: ADMIT Orthopaedic Surgery; ATTEND Orthopaedic Surgery
PROC: 0SR904A Replacement of Right Hip Joint with Ceramic on Polyethylene Synthetic Substitute, Uncemented, Open Approach (ICD-10-PCS; principal; 2017-02-07 14:15)
DX: M16.11 Unilateral primary osteoarthritis, right hip (principal); I10 Essential (primary) hypertension; Z68.35 Body mass index [BMI] 35.0-35.9, adult; E78.5 Hyperlipidemia, unspecified; N40.0 Benign prostatic hyperplasia without lower urinary tract symptoms; K21.9 Gastro-esophageal reflux disease without esophagitis; K58.9 Irritable bowel syndrome, unspecified; Z98.1 Arthrodesis status; Z85.820 Personal history of malignant melanoma of skin
CPT/HCPCS: 97110-GP; 97161-GP; 97165-GO; J0171; J0330; J1100; J1170; J1650; J1885; J2250; J2370; J2704; J2795; J3010; J3370